=== PATIENT | male | born 1960 | race American Indian/Alaskan Native ===

== ENCOUNTER 2016-12-14 20:15 | Emergency (ER) | payer BC | END 2016-12-14 20:41 | disposition left against medical advice (07) | LOC: ED 20:15 | DX: R51 Headache (principal); Z53.21 Procedure and treatment not carried out due to patient leaving prior to being seen by health care provider ==

== ENCOUNTER 2016-12-18 03:15 | Emergency (ER) | payer BC ==
--- NOTE | 2016-12-18 04:14 | Cat Scan Report ---
FINAL REPORT EXAM: CT HEAD/BRAIN WO CON HISTORY: STEPHENSON TECHNIQUE: CT imaging is acquired through the brain without contrast. Transaxial reformations are provided. PRIORS: 09/02/2015 FINDINGS: Ventricles and CSF spaces are within normal limits. Scattered deep and subcortical white matter hypodense foci are confluent in some areas and are compatible with microvascular angiopathy. No acute intracranial hemorrhage or mass effect. No skull fracture. Partially visualized paranasal sinuses are clear. Mastoids are clear. IMPRESSION: No acute intracranial abnormality. There are chronic sequela of microvascular angiopathy.
[2016-12-18] MEDS ORDERED: NACL 0.9% 1000 ML 1,000 ML IV ONE (07:22)
[2016-12-18] MEDS ORDERED: BENADRYL IV ONE (07:28)
[2016-12-18] MEDS ORDERED: TORADOL IV ONE (07:28)
[2016-12-18] MEDS ORDERED: REGLAN IV ONE (07:28)
[2016-12-18 07:51] LABS: Hematocrit 41.5 % (35.5-45.6); Hemoglobin 14.5 gm/dl (11.8-15.2); Mean Corpuscular HGB Conc 35 % (32-34); Mean Corpuscular Hemoglobin 31 pg (28-32); Mean Corpuscular Volume 89 fl (84-94); Platelet Count 234 K/mm3 (140-440); Red Blood Count 4.68 M/mm3 (3.65-5.03); White Blood Count 10.6 K/mm3 (4.5-11.0)
[2016-12-18 08:03] LABS: Anion Gap 17 mmol/L; BUN/Creatinine Ratio 18; Blood Urea Nitrogen 16 mg/dL (9-20); Carbon Dioxide 27 mmol/L (22-30); Chloride 102.1 mmol/L (98-107); Glucose 110 mg/dL (75-100); Potassium 3.5 mmol/L (3.6-5.0); Sodium 143 mmol/L (137-145)
[2016-12-18 09:06] LABS: Erythrocyte Sedimentation Rate 17 mm/Hr (0-20)
[2016-12-18 09:10] LABS: Bacteria,Urine 1+ /HPF (Negative); Bilirubin,Urine NEG (Negative); Blood,Urine MOD (Negative); Ketones,Urine NEG (Negative); Leukocyte Esterase,Urine TR (Negative); Mucus,Urine FEW /HPF; Nitrite,Urine NEG (Negative); Protein,Urine <15 mg/dL mg/dL (Negative); Urobilinogen,Urine < 2.0 mg/dL (<2.0)
--- NOTE | 2016-12-18 09:21 | Emergency Department Report ---
ED Headache HPI - General Chief Complaint: Headache Stated Complaint: HEADACHE Source: patient Exam Limitations: no limitations - History of Present Illness Initial Comments: 56 year old male presents to ED with intermittent temporal headaches x3 weeks every night after midnight. patient is stable, neurologically intact and in no acute distress. patient is alert and oriented to person place time and self. patient has normal observed gait. Timing/Duration: episodic, other (3 weeks) Quality: mild Head Injury Location: temporal Associated Symptoms: denies symptoms. denies: confusion, fatigue, facial pain, fever/chills, loss of consciousness, nausea/vomiting, numbness in legs/feet, seizures, sinus infection, stiff neck, vision changes, weakness Allergies/Adverse Reactions: Allergies No Known Allergies Allergy (Verified 03/01/15 01:13) Home Medications: Ambulatory Orders Allopurinol 0 mg PO DAILY 02/28/15 Atenolol 0 mg PO DAILY 02/28/15 Benazepril (Nf) 0 mg PO DAILY 02/28/15 Indomethacin 0 mg PO DAILY 02/28/15 Pravastatin 0 mg PO HS 02/28/15 amLODIPine 0 mg PO DAILY 02/28/15 traMADol [Ultram] 50 mg PO Q4HR PRN #20 tablet 09/02/15 Meloxicam 7.5 mg PO QAM #5 tablet 12/18/16 ED Review of Systems ROS: Stated complaint: HEADACHE Other details as noted in HPI Constitutional: denies: chills, fever, weakness Eyes: denies: eye pain, eye discharge, vision change ENT: denies: ear pain, throat pain Respiratory: denies: cough, shortness of breath, wheezing Cardiovascular: denies: chest pain, palpitations Endocrine: no symptoms reported Gastrointestinal: denies: abdominal pain, nausea, diarrhea Genitourinary: denies: urgency, dysuria Musculoskeletal: denies: back pain, joint swelling, arthralgia Skin: denies: rash, lesions Neurological: headache. denies: weakness, numbness, paresthesias, confusion, abnormal gait, vertigo Psychiatric: denies: anxiety, depression Hematological/Lymphatic: denies: easy bleeding, easy bruising ED Past Medical Hx - Past Medical History Previous Medical History?: Yes Hx Hypertension: Yes Additional medical history: GOUT - Surgical History Past Surgical History?: No - Social History Smoking Status: Current Every Day Smoker Substance Use Type: Alcohol - Medications Home Medications: Home Medications Medication Instructions Recorded Confirmed Last Taken Type Allopurinol 0 mg PO DAILY 02/28/15 09/02/15 Unknown History Atenolol 0 mg PO DAILY 02/28/15 09/02/15 Unknown History Benazepril (Nf) 0 mg PO DAILY 02/28/15 09/02/15 Unknown History Indomethacin 0 mg PO DAILY 02/28/15 09/02/15 Unknown History Pravastatin 0 mg PO HS 02/28/15 09/02/15 Unknown History amLODIPine 0 mg PO DAILY 02/28/15 09/02/15 Unknown History traMADol [Ultram] 50 mg PO Q4HR PRN #20 tablet 09/02/15 Unknown Rx Meloxicam 7.5 mg PO QAM #5 tablet 12/18/16 Unknown Rx ED Physical Exam - General Limitations: No Limitations General appearance: alert, in no apparent distress - Head Head exam: Present: atraumatic, normocephalic - Eye Eye exam: Present: normal appearance, EOMI Pupils: Present: normal accommodation - ENT ENT exam: Present: mucous membranes moist - Neck Neck exam: Present: normal inspection, full ROM. Absent: tenderness - Respiratory Respiratory exam: Present: normal lung sounds bilaterally. Absent: respiratory distress, chest wall tenderness - Cardiovascular Cardiovascular Exam: Present: regular rate, normal rhythm. Absent: systolic murmur, diastolic murmur, rubs, gallop - GI/Abdominal GI/Abdominal exam: Present: soft, normal bowel sounds. Absent: distended, tenderness, guarding - Rectal Rectal exam: Present: deferred - Extremities Exam Extremities exam: Present: normal inspection, full ROM, other (normal strength in all 4 extremeties). Absent: tenderness - Back Exam Back exam: Present: normal inspection, full ROM. Absent: tenderness - Neurological Exam Neurological exam: Present: alert, oriented X3, normal gait - Expanded Neurological Exam Expanded Neurological exam: Absent: innattentive Patient oriented to: Present: person, place, time Speech: Present: fluid speech Cranial nerves: EOM's Intact: Normal, Tongue Deviation: Normal Sensory exam: Upper Extremity Light Touch: Normal, Lower Extremity Light Touch: Normal Motor strength exam: RUE: 5, LUE: 5, RLE: 5, LLE: 5 Best Eye Response ([place]): (4) open spontaneously Best Motor Response ([place]): (6) obeys commands Best Verbal Response ([place]): (5) oriented [place] Total: 15 - Psychiatric Psychiatric exam: Present: normal affect, normal mood - Skin Skin exam: Present: warm, dry, intact, normal color. Absent: rash ED Course Vital Signs 12/18/16 12/18/16 03:23 09:24 Temperature 97.5 F L 98.0 F Pulse Rate 91 H 67 Respiratory 20 20 Rate Blood Pressure 137/97 Blood Pressure 112/85 [Left] O2 Sat by Pulse 95 95 Oximetry ED Medical Decision Making - Lab Data Result diagrams: 12/18/16 07:32 12/18/16 07:32 Laboratory Results - last 72 hr 12/18/16 12/18/16 12/18/16 07:32 07:32 Unknown WBC 10.6 RBC 4.68 Hgb 14.5 Hct 41.5 MCV 89 MCH 31 MCHC 35 H RDW 14.0 Plt Count 234 ESR 17 Sodium 143 Potassium 3.5 L Chloride 102.1 Carbon Dioxide 27 Anion Gap 17 BUN 16 Creatinine 0.9 Estimated GFR > 60 BUN/Creatinine Ratio 18 Glucose 110 H Calcium 9.0 Urine Color Straw Urine Turbidity Clear Urine pH 7.0 Ur Specific [place] 1.011 Urine Protein <15 mg/dl Urine Glucose (UA) Neg Urine Ketones Neg Urine Blood Mod Urine Nitrite Neg Urine Bilirubin Neg Urine Urobilinogen < 2.0 Ur Leukocyte Esterase Tr Urine WBC (Auto) 14.0 H Urine RBC (Auto) 15.0 U Epithel Cells (Auto) < 1.0 Urine Bacteria (Auto) 1+ Urine Mucus Few - Radiology Data Radiology results: report reviewed CT brain No acute intracranial abnormality. - Medical Decision Making 56 year old male presents to ED with intermittent temporal headache x3 weeks. patient is stable, neurologically intact and in no acute distress. patient has normal ESR and negative imaging study for acute intracranial abnormalities. patient has normal observed gait. patient agrees and understands to follow up with neurologist within 2 days for further evaluation. Critical care attestation.: If time is entered above; I have spent that time in minutes in the direct care of this critically ill patient, excluding procedure time. ED Disposition Clinical Impression: Headache Qualifiers: Headache type: new daily persistent Qualified Code(s): G44.52 - New daily persistent headache (NDPH) Disposition: - TO HOME OR SELFCARE Is pt being admited?: No Does the pt Need Aspirin: No Condition: Stable Instructions: Migraine Headache (ED), Acute Headache (ED) Prescriptions: Meloxicam 7.5 mg PO QAM #5 tablet Referrals: ALBA GO MD [Staff Physician] - 2-3 Days SAMMY LU MD [Staff Physician] - 2-3 Days ALEXANDRA KENNEDY MD [Staff Physician] - 2-3 Days PORSCHE FOY MD [Staff Physician] - 2-3 Days TAYLER MCDUFFIE MD [Primary Care Provider] - 2-3 Days Forms: Work/School Release Form(ED)
[2016-12-18 09:26] VITALS: BP 112/85
== END 2016-12-18 09:27 | disposition home or self-care (01) ==
LOC: ED 03:15
DX: G44.52 New daily persistent headache (NDPH) (principal); I10 Essential (primary) hypertension; F17.200 Nicotine dependence, unspecified, uncomplicated
CPT/HCPCS: 36415; 70450; 80048; 81001; 85027; 85652; 96361; 96374; 96375; 99284; J1200; J1885; J2765; J7030

== ENCOUNTER 2018-08-30 18:47 | Emergency (ER) | payer BC, OTHER ==
[2018-08-30 18:58] VITALS: BP 116/87
--- NOTE | 2018-08-30 18:58 | Event Note ---
ED Screening Note Date of service: 08/30/18 Time: 18:57 ED Screening Note: 58 y/o male comes in for rectal bleeding and dizziness. This initial assessment/diagnostic orders/clinical plan/treatment(s) is/are subject to change based on patients health status, clinical progression and re-assessment by fellow clinical providers in the ED. Further treatment and workup at subsequent clinical providers discretion. Patient/guardian urged not to elope from the ED as their condition may be serious if not clinically assessed and managed. Initial orders include:
[2018-08-30 19:22] LABS: Basophils # (Auto) 0.1 K/mm3 (0.0-0.1); Basophils % (Auto) 0.5 % (0.0-1.8); Eosinophils # (Auto) 0.1 K/mm3 (0.0-0.4); Eosinophils % (Auto) 0.8 % (0.0-4.3); Hematocrit 36.8 % (35.5-45.6); Hemoglobin 12.5 gm/dl (11.8-15.2); Lymphocytes # (Auto) 2.5 K/mm3 (1.2-5.4); Lymphocytes % (Auto) 19.7 % (13.4-35.0); Mean Corpuscular HGB Conc 34 % (32-34); Mean Corpuscular Volume 92 fl (84-94); Monocytes # (Auto) 0.6 K/mm3 (0.0-0.8); Monocytes % (Auto) 5.2 % (0.0-7.3); Platelet Count 196 K/mm3 (140-440); Red Blood Count 4.01 M/mm3 (3.65-5.03); Red Cell Distribution Width 13.8 % (13.2-15.2)
[2018-08-30 19:36] LABS: INR 1.02 (0.87-1.13); Partial Thromboplastin Time 22.4 Sec. (24.2-36.6)
[2018-08-30 19:39] LABS: Albumin 3.6 g/dL (3.9-5); Calcium 8.4 mg/dL (8.4-10.2)
== END 2018-08-30 19:30 | disposition left against medical advice (07) ==
LOC: ED 18:47
DX: K92.1 Melena (principal); Z53.21 Procedure and treatment not carried out due to patient leaving prior to being seen by health care provider
CPT/HCPCS: 36415; 80053; 85025; 85610; 85730; 86850; 86900; 86901

== ENCOUNTER 2020-01-24 03:34 | Emergency (ER) | payer BC, OTHER ==
--- NOTE | 2020-01-24 06:55 | Emergency Department Report ---
ED General Adult HPI - General Chief complaint: Extremity Problem,Nontraumatic Stated complaint: BOTH LEGS HURT/NUMBNESS TO HANDS PUI?: No Time Seen by Provider: 01/24/20 06:44 Source: patient Mode of arrival: Ambulatory Limitations: No Limitations - History of Present Illness Initial comments: CC: knee pain, hands numb HPI: THis is a 59 yo male with hx of HTN and gout who presents with one day of bilateral hand numbness and bilateral knee pain. He normally has gout flares in this feet. He admits to "overdoing It" with alcohol on Friday. Normally does not have knee pain. Hands feel numb. NO weakness in any extremities. He has posterior bilateral knee pain. NO trauma. Mild swelling. PCP [facility] -: Gradual, days(s) (1) Location: left, right, upper extremity, lower extremity Severity scale (0 -10): 6 Quality: aching Consistency: constant Improves with: none Worsens with: none Associated Symptoms: denies other symptoms Treatments Prior to Arrival: none - Related Data Home Medications Medication Instructions Recorded Confirmed Last Taken Allopurinol 0 mg PO DAILY 02/28/15 09/02/15 Unknown Atenolol 0 mg PO DAILY 02/28/15 09/02/15 Unknown Benazepril (Nf) 0 mg PO DAILY 02/28/15 09/02/15 Unknown Indomethacin 0 mg PO DAILY 02/28/15 09/02/15 Unknown Pravastatin 0 mg PO HS 02/28/15 09/02/15 Unknown amLODIPine 0 mg PO DAILY 02/28/15 09/02/15 Unknown Previous Rx's Medication Instructions Recorded Last Taken Type traMADoL [Ultram] 50 mg PO Q4HR PRN #20 tablet 09/02/15 Unknown Rx Meloxicam 7.5 mg PO QAM #5 tablet 12/18/16 Unknown Rx HYDROcodone/APAP 5-325 [Ruso 1 each PO Q6HR PRN #10 tablet 01/24/20 Unknown Rx 5/325] Prednisone [predniSONE 10 mg 10 mg PO .TAPER #1 tab.ds.pk 01/24/20 Unknown Rx (6-Day Pack, 21 Tabs)] Allergies Allergy/AdvReac Type Severity Reaction Status Date / Time No Known Allergies Allergy Verified 08/30/18 18:58 ED Review of Systems ROS: Stated complaint: BOTH LEGS HURT/NUMBNESS TO HANDS Other details as noted in HPI Comment: All other systems reviewed and negative Constitutional: denies: fever, malaise Respiratory: denies: cough, shortness of breath Cardiovascular: denies: chest pain Gastrointestinal: denies: abdominal pain, nausea, vomiting Musculoskeletal: arthralgia Neurological: paresthesias ED Past Medical Hx - Past Medical History Previous Medical History?: Yes Hx Hypertension: Yes Additional medical history: GOUT - Surgical History Past Surgical History?: No - Social History Smoking Status: Current Every Day Smoker Substance Use Type: Alcohol - Medications Home Medications: Home Medications Medication Instructions Recorded Confirmed Last Taken Type Allopurinol 0 mg PO DAILY 02/28/15 09/02/15 Unknown History Atenolol 0 mg PO DAILY 02/28/15 09/02/15 Unknown History Benazepril (Nf) 0 mg PO DAILY 02/28/15 09/02/15 Unknown History Indomethacin 0 mg PO DAILY 02/28/15 09/02/15 Unknown History Pravastatin 0 mg PO HS 02/28/15 09/02/15 Unknown History amLODIPine 0 mg PO DAILY 02/28/15 09/02/15 Unknown History traMADoL [Ultram] 50 mg PO Q4HR PRN #20 tablet 09/02/15 Unknown Rx Meloxicam 7.5 mg PO QAM #5 tablet 12/18/16 Unknown Rx HYDROcodone/APAP 5-325 [Ruso 1 each PO Q6HR PRN #10 tablet 01/24/20 Unknown Rx 5/325] Prednisone [predniSONE 10 mg 10 mg PO .TAPER #1 tab.ds.pk 01/24/20 Unknown Rx (6-Day Pack, 21 Tabs)] ED Physical Exam - General Limitations: No Limitations General appearance: alert, in no apparent distress - Head Head exam: Present: atraumatic, normocephalic - Eye Eye exam: Present: normal appearance - ENT ENT exam: Present: mucous membranes moist - Neck Neck exam: Present: normal inspection, full ROM - Respiratory Respiratory exam: Present: normal lung sounds bilaterally. Absent: respiratory distress, wheezes, rales, rhonchi - Cardiovascular Cardiovascular Exam: Present: regular rate, normal rhythm, normal heart sounds. Absent: systolic murmur, diastolic murmur, rubs, gallop - GI/Abdominal GI/Abdominal exam: Present: soft, normal bowel sounds. Absent: distended, tenderness, guarding, rebound - Rectal Rectal exam: Present: deferred - Extremities Exam Extremities exam: Present: normal inspection - Expanded Lower Extremity Exam Left Hip exam: Present: normal inspection, full ROM Upper Leg exam: Present: normal inspection, full ROM Knee exam: Present: normal inspection, full ROM. Absent: tenderness, swelling Lower Leg exam: Present: normal inspection, full ROM Ankle exam: Present: normal inspection, full ROM Foot/Toe exam: Present: normal inspection, full ROM Neuro vascular tendon exam: Present: no vascular compromise Right Hip exam: Present: normal inspection, full ROM Upper Leg exam: Present: normal inspection, full ROM Knee exam: Present: normal inspection, full ROM Lower Leg exam: Present: normal inspection, full ROM Ankle exam: Present: normal inspection, full ROM Foot/Toe exam: Present: normal inspection, full ROM - Back Exam Back exam: Present: normal inspection - Neurological Exam Neurological exam: Present: alert, oriented X3 - Psychiatric Psychiatric exam: Present: normal affect, normal mood - Skin Skin exam: Present: warm, dry, intact, normal color. 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 bilateral hand numbness: carpal tunnel syndrome possibly vs nerve compression vs vitamin deficiency, referred to orthopedic surgeon 2. bilateral knee pain suspect DJD, referred to orthopedic surgeon rx: norco, patient also provided prednisone taper for possibility of pseudogout Critical care attestation.: If time is entered above; I have spent that time in minutes in the direct care of this critically ill patient, excluding procedure time. ED Disposition Clinical Impression: Arthritis of knee, degenerative, Bilateral hand numbness Disposition: - TO HOME OR SELFCARE Is pt being admited?: No Does the pt Need Aspirin: No Condition: Stable Instructions: Osteoarthritis Prescriptions: HYDROcodone/APAP 5-325 [Ruso 5/325] 1 each PO Q6HR PRN #10 tablet PRN Reason: Pain Prednisone [predniSONE 10 mg (6-Day Pack, 21 Tabs)] 10 mg PO .TAPER #1 tab.ds.pk Ref[facility]: [facility] HERI [Primary Care Provider] - 3-5 Days HENRIETTA GRANT MD [Staff Physician] - 3-5 Days
[2020-01-24 07:05] VITALS: BP 169/114
== END 2020-01-24 09:11 | disposition home or self-care (01) ==
LOC: ED 03:34
DX: M13.862 Other specified arthritis, left knee (principal); M13.861 Other specified arthritis, right knee; R20.0 Anesthesia of skin; I10 Essential (primary) hypertension; F17.200 Nicotine dependence, unspecified, uncomplicated; Z79.899 Other long term (current) drug therapy
CPT/HCPCS: 99282